=== PATIENT | male | born 1990 | race Caucasian/White ===

== ENCOUNTER 2024-05-29 10:42 | Outpatient (CLI) | payer OTHER, SELFPAY ==
--- NOTE | ~2024-05-29 | US_ITS ---
EXAMINATION: US soft tissue UE LT DATE: 05/29/2024 11:02 INDICATION: Left upper limb localized swelling, mass and lump. TECHNIQUE: Multiple grayscale and Doppler ultrasound images of the left upper limb were obtained. COMPARISON: None FINDINGS: In the left upper arm, there is a 1.5 x 0.3 x 1.0 cm subcutaneous mass that is isoechoic to normal subcutaneous fat with similar echotexture, likely a lipoma. IMPRESSION: 1. 1.5 cm subcutaneous mass in left upper arm, likely a lipoma. Reviewed, dictated and finalized at location A. VALVE MECHANIC
--- NOTE | ~2024-05-29 | US_ITS ---
Limited Abdominal Sonogram: Real-time sonographic imaging of the right upper quadrant was performed. Clinical History: Alcohol abuse Findings: The liver appears normal with no evidence of mass lesion or bile duct dilatation. Main por escobar vein demonstrates normal direction of flow. The gallbladder is well distended, and appears normal with no evidence of gallstone or wall thickening. The common bile duct measures 3 mm. The visualize d pancreas, aorta, and IVC are unremarkable. Impression: No significant abnormality seen. Reviewed, dictated and finalized at location . ET CLEANING TECHNICIAN Impression: No significant abnormality seen.
== END 2024-05-29 10:43 | disposition home or self-care (01) ==
LOC: GOSHIMG 10:42
PROVIDERS: PCP Family Medicine; Visit Provider Family Medicine
DX: R22.32 Localized swelling, mass and lump, left upper limb (principal); F10.11 Alcohol abuse, in remission
CPT/HCPCS: 76705; 76882

== ENCOUNTER 2024-11-19 12:57 | Outpatient (CLI) | payer OTHER, SELFPAY ==
--- NOTE | ~2024-11-19 | XR_ITS ---
XR toe 5th LT min 2V 11/19/2024 13:27 Indication: Left fifth toe pain Procedure: 3 views left fifth toe Comparison: No prior studies for comparison. Findings: There is a transverse fracture fifth distal phalanx. Mild soft tissue swelling. No foreign bodies. No other fracture identified. Impression: 1: Transverse extra-articular fracture left fifth distal phalanx. Reviewed, dictated and finalized at location B. Impression: 1: Transverse extra-articular fracture left fifth distal phalanx.
== END 2024-11-19 12:58 | disposition home or self-care (01) ==
PROVIDERS: PCP Family Medicine; Visit Provider Family Medicine
DX: S92.532A Displaced fracture of distal phalanx of left lesser toe(s), initial encounter for closed fracture (principal)
CPT/HCPCS: 73660